=== PATIENT | male | born 1975 | race African-American/Black ===

== ENCOUNTER 2018-04-02 18:16 | Emergency (ER) | payer OTHER ==
--- NOTE | 2018-04-02 18:29 | EDM.PDOC ---
ED HPI GENERAL MEDICAL PROBLEM - General Chief Complaint: Upper Extremity Injury/Pain Stated Complaint: finger injury Time Seen by Provider: 04/02/18 18:20 Source of Information: Reports: Patient, Old Records History Limitations: Reports: No Limitations - History of Present Illness INITIAL COMMENTS - FREE TEXT/NARRATIVE: The patient was brought to the emergency room via transport vehicle from [facility] for evaluation of 10/10 finger pain on his left hand after a Workmen's Compensation injury, which occurred at about 16:45 hours. A piece of equipment weighing about 40-50 pounds fell onto his fourth finger from a couple of inches while he was lifting the part. No history of foreign body, paresthesias, neurological deficits, or other complaints or injuries. He did place an ice pack on the injured digit prior to arrival. He has not injured this digit in the past. The patient is right-handed. The patient denies any chest pain/ pressure, heart flutter, dizziness, orthostasis, orthopnea, diaphoresis, paresthesias, recent decreased exercise tolerance, or any other anginal-type symptoms. No recent history of abdominal pain, heartburn, nausea, diarrhea, melena, gross hematochezia, or any food intolerance, including fatty foods, etc.. The patient also denies any recent fever, cough, wheezing, dyspnea, etc.. Onset: Today, Sudden Onset Date: 04/02/18 Onset Time: 16:45 Duration: Constant Location: Reports: Upper Extremity, Left Quality: Reports: Ache, Sharp Severity: Severe Improves with: Reports: Rest Worsens with: Reports: Movement Context: Reports: Trauma (As above) Associated Symptoms: Denies: Confusion, Chest Pain, Cough, Diaphoresis, Fever/ Chills, Headaches, Loss of Appetite, Malaise, Nausea/Vomiting, Rash, Shortness of Breath, Syncope, Weakness Treatments CASE MANAGEMENT DIRECTOR: Reports: Cold Therapy. Denies: Acetaminophen, NSAIDS Left Ring finger (4th) Pain Score (Numeric/FACES): 10 - Related Data Allergies Allergy/AdvReac Type Severity Reaction Status Date / Time No Known Allergies Allergy Verified 04/02/18 18:17 Home Meds: Home Meds . [No Known Home Meds] 04/02/18 [History] Past Medical History HEENT History: Reports: None. Denies: Hard of Hearing, Impaired Vision Respiratory History: Reports: Pulmonary Fibrosis, Other (See Below) Other Respiratory History: Pulmonary fibrosis by chest x-ray. Gastrointestinal History: Reports: Chronic Constipation, GERD Musculoskeletal History: Reports: Arthritis, Osteoarthritis - Past Surgical History GI Surgical History: Reports: Colonoscopy, Other (See Below) Other GI Surgeries/Procedures: Colonoscopy in 2017 Social & Family History - Tobacco Use Smoking Status *Q: Light Tobacco Smoker Tobacco Use Within Last Twelve Months: Cigarettes Years of Tobacco use: 13 Packs/Tins Daily: 0.1 Packs/Tins Daily Comment: Usually smokes 1 cigarette every couple of months since age 29 Used Tobacco, but Quit: No Smoking Cessation Information Provided To Patient: Yes Second Hand Smoke Exposure: No Second Hand Smoke Education Provided: No - Caffeine Use Caffeine Use: Reports: Coffee (One cup per day), Energy Drinks (1 can per week) , Tea (One cup per day). Denies: Soda - Alcohol Use Alcohol Use History: Yes Days Per Week of Alcohol Use: 4 Number of Drinks Per Day: 2 Number of Drinks Per Day Comment: Usually beer or red wine. No previous DWIs, problems with alcohol abuse, etc. Total Drinks Per Week: 8 Alcohol Use in Last Twelve Months: Yes Alcohol Use Frequency: Socially - Recreational Drug Use Recreational Drug Type: Reports: Marijuana/Hashish (Started using at age 35 with last use one week ago). Denies: Amphetamines (Speed), Cocaine, Heroin, Inhalants (Glues, Solvents, Aerosols), LSD (Acid), Morphine, Oxycodone - Living Situation & Occupation Living situation: Reports: (2 children), Other (Roommate) Occupation: Employed ([employer]) Review of Systems - Review of Systems Review Of Systems: ROS reveals no pertinent complaints other than HPI. ED EXAM, GENERAL - Physical Exam Exam: See Below Exam Limited By: No Limitations General Appearance: Alert, WD/WN, No Apparent Distress Head: Atraumatic, Normocephalic Neck: Normal Inspection, Supple, Non-Tender, Full Range of Motion. No: Lymphadenopathy (L), Lymphadenopathy (R), Thyromegaly Respiratory/Chest: No Respiratory Distress, Lungs Clear, Normal Breath Sounds, No Accessory Muscle Use, Chest Non-Tender. No: Pleural Rub, Retractions Cardiovascular: Normal Peripheral Pulses, Regular Rate, Rhythm, No Edema, No Gallop, No JVD, No Murmur, No Rub. No: Gallop/S3, Gallop/S4, Friction Rub Peripheral Pulses: 2+: Radial (L), Radial (R) GI/Abdominal: Normal Bowel Sounds, Soft, Non-Tender, No Organomegaly, No Distention, No Abnormal Bruit, No Mass, Pelvis Stable. No: Guarding (Male) Exam: Deferred Rectal (Males) Exam: Deferred Back Exam: Normal Inspection, Full Range of Motion. No: CVA Tenderness (L), CVA Tenderness (R), Muscle Spasm Extremities: No Pedal Edema, Normal Capillary Refill, Joint Swelling (Distal phalanx of digit #4 of the left hand with mild localized tenderness and minimal subungual hematoma), Limited Range of Motion (Distal phalanx of digit #4 of the left hand secondary to discomfort). No: Non-Tender (As below), Redness Neurological: Alert, Oriented, CN II-XII Intact, Normal Cognition, Normal Gait, Normal Reflexes, No Motor/Sensory Deficits Psychiatric: Normal Affect, Normal Mood Skin Exam: Warm, Dry, Intact, Normal Color, No Rash, Stud(s) (Auricular bilaterally). No: Ecchymosis, Wound/Incision Lymphatic: No Adenopathy ED TRAUMA EXTREMITY PROCEDURES - Splinting Left 4th Digit Pre-Procedure NV Status: Normal Post-Procedure NV Status: Normal Splint Material: Aluminum-Foam (3-hole padded aluminum finger splint) Splint Design: Other (Flexor/extension) Applied & Form Fitted By: Nurse Provider Post-Splint Application NV Check: NV Status Normal, Good Position Complications: No Course - Vital Signs Last Recorded V/S: Last Vital Signs Temp 37.1 C 04/02/18 18:17 Pulse 84 04/02/18 18:17 Resp 16 04/02/18 18:17 BP 146/86 H 04/02/18 18:17 Pulse Ox 100 04/02/18 18:17 Vital Signs - 24 hr 04/02/18 18:17 Temperature [ 37.1 C Oral] Pulse, 84 Peripheral [ Brachial] Respiratory 16 Rate Blood Pressure 146/86 H [Upper Arm] O2 Sat by Pulse 100 Oximetry - Orders/Labs/Meds Orders: Active Orders 24 hr Category Date Time Status Fingers Fourth Digit Lt F3 [CR] Stat Exams 04/02/18 18:29 Ordered Durable Medical Equipment for Discharge [DME for Oth 04/02/18 18:50 Ordered Discharge] [COMM] Routine Obtain Past Medical Record [OM.PC] Routine Oth 04/02/18 18:29 Active Labs: None Meds: None - Radiology Interpretation Free Text/Narrative:: X-rays of digit #4 of the left hand, complete, shows evidence of a nondisplaced , non-angulated distal hairline fracture of the distal phalanx with no foreign body noted. Departure - Departure Time of Disposition: 19:05 Disposition: Home, Self-Care 01 Condition: Good Clinical Impression: Tobacco abuse counseling, Illicit drug use, Peptic reflux disease Contusion Qualifiers: Encounter type: initial encounter Contusion area: finger Finger: ring finger Damage to nail status: without damage Laterality: left Qualified Code(s): S60.042A - Contusion of left ring finger without damage to nail, initial encounter Fracture of hand Qualifiers: Encounter type: initial encounter Fracture type: closed Laterality: left Qualified Code(s): S62.92XA - Unspecified fracture of left wrist and hand, initial encounter for closed fracture - Discharge Information *PRESCRIPTION DRUG MONITORING PROGRAM REVIEWED*: Not Applicable *COPY OF PRESCRIPTION DRUG MONITORING REPORT IN PATIENT JENNI: Not Applicable Instructions: Steps to Quit Smoking, [id number], Finger Fracture, Easy-to- Read, Cast or Splint Care, Adult, [id number] Referrals: Bryson Pickett MD [Primary Care Provider] - Forms: ED Department Discharge Additional Instructions: 1. Followup with your regular provider in 7 days as directed for reevaluation and repeat x-rays of your finger. Bring these discharge instructions with you to that visit. 2. Tylenol 650 mg by mouth every 4 hours and/or OTC ibuprofen 2-3 tabs by mouth every 6 hours with food as directed./needed. 3. Ice packs and finger splint use at all times until otherwise directed by your regular provider. 4. Work excuse- See Form 5. Stop all tobacco,d marijuana, and energy drink use JOSELINE as directed/per provided information and consider contacting Quit LIne, etc.. 6. Immediately after this visit verify that your cellular telephone's voicemail has been activated and is empty. Also verify that your home telephone 's answering machine is operating properly and has space to receive messages. Note that it is sometimes necessary for us to be able to contact you at a later date to discuss your medical care. - Problem List & Annotations (1) Fracture of hand SNOMED Code(s): 17599999 Code(s): S62.90XA - UNSP FRACTURE OF UNSP WRIST AND HAND, INIT FOR CLOS FX Status: Acute Priority: High Onset Date: 04/02/18 Annotation/Comment:: Nondisplaced and non-angulated distal phalangeal fracture of digit #4 of the left hand as above. Finger splint placed by ER nurse. Activity restrictions, etc. discussed. Workmen's Compensation and [id number] work excuse forms were completed. Blood pressure somewhat elevated secondary to discomfort with no previous history of hypertension. Continue to observe closely by his regular provider. Qualifiers: Encounter type: initial encounter Fracture type: closed Laterality: left Qualified Code(s): S62.92XA - Unspecified fracture of left wrist and hand, initial encounter for closed fracture (2) Contusion SNOMED Code(s): 884807433 Code(s): T14.8XXA - OTHER INJURY OF UNSPECIFIED BODY REGION, INITIAL ENCOUNTER Status: Acute Priority: High Onset Date: 04/02/18 Annotation/ Comment:: Symptomatic treatment as per discharge instructions. He is aware that he may lose his fingernail. Qualifiers: Encounter type: initial encounter Contusion area: finger Finger: ring finger Damage to nail status: without damage Laterality: left Qualified Code(s): S60.042A - Contusion of left ring finger without damage to nail, initial encounter (3) Illicit drug use SNOMED Code(s): 349949816 Code(s): F19.90 - OTHER PSYCHOACTIVE SUBSTANCE USE, UNSPECIFIED, UNCOMPLICATED Status: Chronic Priority: Medium Annotation/Comment:: As below (4) Tobacco abuse counseling SNOMED Code(s): 655562614, 060049050, 025308006 Code(s): Z71.6 - TOBACCO ABUSE COUNSELING Status: Chronic Priority: Medium Annotation/Comment:: Patient encouraged to discontinue tobacco, illicit drug, and energy drink use with information provided. (5) Peptic reflux disease SNOMED Code(s): 675538741 Code(s): K21.9 - GASTRO-ESOPHAGEAL REFLUX DISEASE WITHOUT ESOPHAGITIS Status: Chronic Priority: Medium Annotation/Comment:: As above with no current medical therapy required. Note previous history of constipation with negative colonoscopy last year by his history. - Problem List Review Problem List Initiated/Reviewed/Updated: Yes - My Orders Last 24 Hours: My Active Orders 04/02/18 18:29 Fingers Fourth Digit Lt F3 [CR] Stat Obtain Past Medical Record [OM.PC] Routine 04/02/18 18:50 Durable Medical Equipment for Discharge [DME for Discharge] [COMM] Routine - Assessment/Plan Last 24 Hours: My Active Orders 04/02/18 18:29 Fingers Fourth Digit Lt F3 [CR] Stat Obtain Past Medical Record [OM.PC] Routine 04/02/18 18:50 Durable Medical Equipment for Discharge [DME for Discharge] [COMM] Routine Assessment:: As above. Plan: As above. Extensive precautions were given to the patient, who is in agreement with the treatment plan. See Patient Instructions for further treatment and plan.
== END 2018-04-02 19:05 | disposition home or self-care (01) ==
LOC: LL.ED 18:16
DX: S62.665A Nondisplaced fracture of distal phalanx of left ring finger, initial encounter for closed fracture (principal); K21.9 Gastro-esophageal reflux disease without esophagitis; F17.210 Nicotine dependence, cigarettes, uncomplicated; F19.90 Other psychoactive substance use, unspecified, uncomplicated; Z71.6 Tobacco abuse counseling; W20.8XXA Other cause of strike by thrown, projected or falling object, initial encounter; Y99.0 Civilian activity done for income or pay
CPT/HCPCS: 73140-F3; 99283

== ENCOUNTER 2020-02-01 23:42 | Emergency (ER) | payer BC ==
[2020-02-02] MEDS: Cyclobenzaprine 10 MG Tab PO ONE (00:50)
[2020-02-02] MEDS: Ketorolac 60 MG/2 ML SDV IM ONE (00:50)
--- NOTE | 2020-02-02 01:02 | EDM.PDOC ---
ED HPI GENERAL MEDICAL PROBLEM - General Chief Complaint: General Stated Complaint: back pain Time Seen by Provider: 02/02/20 00:00 Source of Information: Reports: Patient History Limitations: Reports: No Limitations - History of Present Illness INITIAL COMMENTS - FREE TEXT/NARRATIVE: Pt with low back pain on left side No known trauma has had hx/o same in past No hx of kidney stones No dysuria No fever No radiation of pain Onset: Gradual Duration: Day(s):, Intermittent Location: Reports: Back Quality: Reports: Ache Severity: Moderate Improves with: Reports: Immobilization Worsens with: Reports: Movement Left Lower Back Pain Score (Numeric/FACES): 5 - Related Data Allergies Allergy/AdvReac Type Severity Reaction Status Date / Time No Known Allergies Allergy Verified 02/01/20 23:51 Home Meds: Home Meds Ascorbate Calcium [Vitamin C] 500 mg PO DAILY 02/01/20 [History] Multivit with Iron,Hematinic [Central-Tati] 1 each PO DAILY 02/01/20 [History] Melatonin 3 mg PO BEDTIME 02/02/20 [History] Past Medical History HEENT History: Reports: None. Denies: Hard of Hearing, Impaired Vision Respiratory History: Reports: Pulmonary Fibrosis, Other (See Below) Other Respiratory History: Pulmonary fibrosis by chest x-ray. Gastrointestinal History: Reports: Chronic Constipation, GERD Musculoskeletal History: Reports: Arthritis, Fracture, Osteoarthritis, Other ( See Below) Other Musculoskeletal History: Nondisplaced tuft fracture of digit #4 of the left hand on 04/02/18. 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[employer]) ED ROS GENERAL - Review of Systems Review Of Systems: See Below Musculoskeletal: Reports: Back Pain ED EXAM, GENERAL - Physical Exam Exam: See Below Exam Limited By: No Limitations General Appearance: Mild Distress Back Exam: Muscle Spasm, Other (Left sided low back pain No ecchymosis No erythema) Course - Vital Signs Last Recorded V/S: Last Vital Signs Temp 99.2 F 02/01/20 23:42 Pulse 118 H 02/01/20 23:42 Resp 20 02/01/20 23:42 BP 149/96 H 02/01/20 23:42 Pulse Ox 100 02/01/20 23:42 - Orders/Labs/Meds Labs: Laboratory Tests 02/02/20 Range/Units 00:00 Specimen Type Urinvoid Urine Color Light yellow Urine Appearance Clear Urine pH 7.0 (5.0-9.0) Ur Specific [place] 1.010 (1.005-1.030) Urine Protein Negative (NEGATIVE) mg/dL Urine Glucose (UA) Negative (NEGATIVE) mg/dL Urine Ketones Negative (NEGATIVE) mg/dL Urine Occult Blood Negative (NEGATIVE) Urine Nitrite Negative (NEGATIVE) Urine Bilirubin Negative (NEGATIVE) Urine Urobilinogen 0.2 (0.2-1.0) E.U./dL Ur Leukocyte Esterase Negative (NEGATIVE) Urine RBC 0-5 /HPF Urine WBC Not seen /HPF Urine Bacteria Not seen (NONE TO FEW) /HPF Meds: Medications Discontinued Medications Generic Name Dose Route Start Last Admin Trade Name Freq PRN Reason Stop Dose Admin Cyclobenzaprine HCl 10 mg 02/02/20 00:40 02/02/20 00:50 Flexeril PO 02/02/20 00:41 10 mg ONETIME ONE Administration Ketorolac Tromethamine 60 mg 02/02/20 00:40 02/02/20 00:50 Toradol IM 02/02/20 00:41 60 mg ONETIME ONE Administration - Re-Assessments/Exams Free Text/Narrative Re-Assessment/Exam: 02/02/20 00:59 UA negative Pt given Toradol 60 mg IM and Flexeril 10 mg PO in ER Departure - Departure Time of Disposition: 01:00 Disposition: Home, Self-Care 01 Clinical Impression: Lumbar pain - Discharge Information *PRESCRIPTION DRUG MONITORING PROGRAM REVIEWED*: Not Applicable *COPY OF PRESCRIPTION DRUG MONITORING REPORT IN PATIENT JENNI: Not Applicable Instructions: Acute Back Pain, Adult Additional Instructions: Tylenol or Motrin as needed Follow up in clinic Sepsis Event Note - Evaluation Sepsis Screening Result: No Definite Risk - Focused Exam Vital Signs: Vital Signs Temp Pulse Resp BP Pulse Ox 02/01/20 23:42 99.2 F 118 H 20 149/96 H 100 Date Exam was Performed: 02/02/20 Time Exam was Performed: 00:57
== END 2020-02-02 01:06 | disposition home or self-care (01) ==
LOC: LL.ED 23:42
DX: M54.5 Low back pain (principal); F17.210 Nicotine dependence, cigarettes, uncomplicated
CPT/HCPCS: 81001; 96372; 99283; A9270-GY; J1885